=== PATIENT | female | born 1965 | race American Indian/Alaskan Native ===

== ENCOUNTER 2017-07-11 18:17 | Inpatient (IN) | payer OTHER ==
[2017-07-11] MEDS ORDERED: ASPIRIN PO ONE (18:36)
[2017-07-11 18:50] LABS: Basophils % (Auto) 0.7 % (0.0-1.8); Eosinophils # (Auto) 0.2 K/mm3 (0.0-0.4); Eosinophils % (Auto) 2.5 % (0.0-4.3); Hematocrit 41.7 % (30.3-42.9); Hemoglobin 14.2 gm/dl (10.1-14.3); Lymphocytes # (Auto) 3.1 K/mm3 (1.2-5.4); Lymphocytes % (Auto) 42.4 % (13.4-35.0); Mean Corpuscular HGB Conc 34 % (30-34); Mean Corpuscular Hemoglobin 30 pg (28-32); Mean Corpuscular Volume 89 fl (79-97); Monocytes # (Auto) 0.7 K/mm3 (0.0-0.8); Platelet Count 266 K/mm3 (140-440); Red Blood Count 4.68 M/mm3 (3.65-5.03); Red Cell Distribution Width 13.7 % (13.2-15.2)
[2017-07-11 19:05] LABS: BUN/Creatinine Ratio 26; Blood Urea Nitrogen 18 mg/dL (7-17); Calcium 9.2 mg/dL (8.4-10.2); Hemolysis Index 20
[2017-07-11] MEDS ORDERED: ZOFRAN IV ONE (20:49)
[2017-07-11] MEDS ORDERED: MORPHINE IV ONE ×2 (20:49→22:09)
--- NOTE | 2017-07-11 22:03 | Emergency Department Report ---
ED Chest Pain HPI - General Chief Complaint: Chest Pain Stated Complaint: CHEST PAIN Time Seen by Provider: 07/11/17 20:43 Source: patient Mode of arrival: Ambulatory Limitations: No Limitations - History of Present Illness Initial Comments: Patient is a 51-year-old [place] female presenting with chest pain. Patient states she has chest pressure is 8 out of 10 in severity with shortness of breath. Patient denies diaphoresis nausea vomiting. Patient states she was at rest when this started this persisted since. Patient states that occasionally she will get chest pain with exertion. But this is the worst episode she's ever had. Patient denies any cough congestion sore throat at this time. Severity scale (0 -10): 7 - Related Data Allergies Allergy/AdvReac Type Severity Reaction Status Date / Time No Known Allergies Allergy Unverified 07/11/17 18:28 Heart Score - HEART Score History: Moderately suspicious EKG: Non-specific Age: 45-65 Risk factors: 1-2 risk factors Troponin: < normal limit HEART Score: 4 ED Review of Systems ROS: Stated complaint: CHEST PAIN Other details as noted in HPI Comment: All other systems reviewed and negative ED Past Medical Hx - Past Medical History Previous Medical History?: Yes Hx Hypertension: Yes Additional medical history: High cholesterol - Surgical History Past Surgical History?: Yes Additional Surgical History: hysterectomy. hemorrhoidectomy - Social History Smoking Status: Never Smoker Substance Use Type: Alcohol ED Physical Exam - General Limitations: No Limitations General appearance: alert, other (patient appears uncomfortable holding her chest) - Head Head exam: Present: atraumatic, normocephalic - Eye Eye exam: Present: normal appearance - ENT ENT exam: Present: mucous membranes moist - Neck Neck exam: Present: normal inspection - Respiratory Respiratory exam: Present: normal lung sounds bilaterally. Absent: respiratory distress, wheezes, rales - Cardiovascular Cardiovascular Exam: Present: regular rate, normal rhythm. Absent: systolic murmur, diastolic murmur, rubs, gallop - GI/Abdominal GI/Abdominal exam: Present: soft, normal bowel sounds. Absent: distended, tenderness, guarding - Extremities Exam Extremities exam: Present: normal inspection - Back Exam Back exam: Present: normal inspection - Neurological Exam Neurological exam: Present: alert, oriented X3 - Psychiatric Psychiatric exam: Present: normal affect, normal mood - Skin Skin exam: Present: warm, dry, intact, normal color. Absent: rash ED Course Vital Signs 07/11/17 07/11/17 07/11/17 18:28 20:41 21:10 Temperature 97.5 F L 98.6 F Pulse Rate 103 H 96 H 106 H Respiratory 20 18 20 Rate Blood Pressure 189/82 Blood Pressure 143/78 [Right] O2 Sat by Pulse 98 100 99 Oximetry 07/11/17 07/11/17 21:16 21:30 Temperature Pulse Rate 96 H 99 H Respiratory 20 18 Rate Blood Pressure 145/71 145/71 Blood Pressure [Right] O2 Sat by Pulse 97 93 Oximetry JUDITH score - Judith Score Age > 65: (0) No Aspirin use within the Past 7 Days: (1) Yes 3 or more CAD Risk Factors: (0) No 2 or more Angina events in past 24 hrs: (1) Yes Known CAD with more than 50% Stenosis: (0) No Elevated Cardiac Markers: (0) No ST Deviation Greater than 0.5mm: (0) No JUDITH Score: 2 ED Medical Decision Making - Lab Data Result diagrams: 07/11/17 18:42 07/11/17 18:42 Lab Results 07/11/17 07/11/17 07/11/17 Range/Units 18:42 18:42 20:54 WBC 7.3 (4.5-11.0) K/mm3 RBC 4.68 (3.65-5.03) M/mm3 Hgb 14.2 (10.1-14.3) gm/dl Hct 41.7 (30.3-42.9) % MCV 89 (79-97) fl MCH 30 (28-32) pg MCHC 34 (30-34) % RDW 13.7 (13.2-15.2) % Plt Count 266 (140-440) K/mm3 Lymph % (Auto) 42.4 H (13.4-35.0) % [place] % (Auto) 9.0 H (0.0-7.3) % Eos % (Auto) 2.5 (0.0-4.3) % Baso % (Auto) 0.7 (0.0-1.8) % Lymph # 3.1 (1.2-5.4) K/mm3 [place] # 0.7 (0.0-0.8) K/mm3 Eos # 0.2 (0.0-0.4) K/mm3 Baso # 0.0 (0.0-0.1) K/mm3 Seg Neutrophils % 45.4 (40.0-70.0) % Seg Neutrophils # 3.3 (1.8-7.7) K/mm3 D-Dimer < 135.00 (0-234) ng/mlDDU Sodium 141 (137-145) mmol/L Potassium 3.6 (3.6-5.0) mmol/L Chloride 100.3 (98-107) mmol/L Carbon Dioxide 28 (22-30) mmol/L Anion Gap 16 mmol/L BUN 18 H (7-17) mg/dL Creatinine 0.7 (0.7-1.2) mg/dL Estimated GFR > 60 ml/min BUN/Creatinine Ratio 26 % Glucose 132 H (65-100) mg/dL Calcium 9.2 (8.4-10.2) mg/dL Troponin T < 0.010 (0.00-0.029) ng/mL 07/11/17 Range/Units 21:14 WBC (4.5-11.0) K/mm3 RBC (3.65-5.03) M/mm3 Hgb (10.1-14.3) gm/dl Hct (30.3-42.9) % MCV (79-97) fl MCH (28-32) pg MCHC (30-34) % RDW (13.2-15.2) % Plt Count (140-440) K/mm3 Lymph % (Auto) (13.4-35.0) % [place] % (Auto) (0.0-7.3) % Eos % (Auto) (0.0-4.3) % Baso % (Auto) (0.0-1.8) % Lymph # (1.2-5.4) K/mm3 [place] # (0.0-0.8) K/mm3 Eos # (0.0-0.4) K/mm3 Baso # (0.0-0.1) K/mm3 Seg Neutrophils % (40.0-70.0) % Seg Neutrophils # (1.8-7.7) K/mm3 D-Dimer (0-234) ng/mlDDU Sodium (137-145) mmol/L Potassium (3.6-5.0) mmol/L Chloride (98-107) mmol/L Carbon Dioxide (22-30) mmol/L Anion Gap mmol/L BUN (7-17) mg/dL Creatinine (0.7-1.2) mg/dL Estimated GFR ml/min BUN/Creatinine Ratio % Glucose (65-100) mg/dL Calcium (8.4-10.2) mg/dL Troponin T < 0.010 (0.00-0.029) ng/mL - EKG Data -: EKG Interpreted by Me - EKG Data Interpretation: other (EKG shows a sinus tachycardia 105 normal axis normal intervals and no ST segment elevations or depressions) - Radiology Data Radiology results: report reviewed Within normal limits no acute process - Medical Decision Making Patient is a 51-year-old black female who is presenting with chest discomfort. Patient's heart scores for in the intermediate range. I did speak with Dr. Pickett with [facility] who stated that since the patient is still having active chest discomfort that she is to stay here at our hospital at this time. The patient will be admitted to the hospitalist service Critical Care Time: Yes Critical care time in (mins) excluding proc time.: 30 Critical care attestation.: If time is entered above; I have spent that time in minutes in the direct care of this critically ill patient, excluding procedure time. ED Disposition Clinical Impression: Chest pain Qualifiers: Chest pain type: unspecified Qualified Code(s): R07.9 - Chest pain, unspecified Disposition: 09 OP ADMIT IP TO THIS HOSP Is pt being admited?: No Does the pt Need Aspirin: No Condition: Stable Instructions: Chest Pain (ED)
[2017-07-11] MEDS ORDERED: NITRO-BID 2% TP ONE (22:09)
--- NOTE | 2017-07-11 22:54 | XRay Report ---
FINAL REPORT PROCEDURE: XR CHEST 1V AP TECHNIQUE: Chest radiograph anteroposterior view. CPT 26258 HISTORY: cp COMPARISON: No prior studies are available for comparison. FINDINGS: Heart: Normal. Mediastinum/Vessels: Normal. Lungs/Pleural space: An inhomogeneous density is noted in the left retrocardiac region. Right lung and bilateral pleural spaces are clear.. Bony thorax: No acute osseous abnormality. Life support devices: None. IMPRESSION: An inhomogeneous density in the left retrocardiac region may represent atelectatic versus infiltrative changes. A two view chest study is recommended whenever the patient's condition permits..
[2017-07-11] MEDS ORDERED: SODIUM CHLORIDE FLUSH SYRINGE 10 ML IV PRN (22:57)
[2017-07-11] MEDS ORDERED: MORPHINE IV PRN (22:57)
[2017-07-11] MEDS ORDERED: ZOFRAN IV PRN (22:57)
[2017-07-11] MEDS ORDERED: TYLENOL PO PRN (22:57)
--- NOTE | 2017-07-11 23:03 | History and Physical Report ---
History of Present Illness Date of examination: 07/11/17 History of present illness: 51-year-old lady with a history of hypertension, hyperlipidemia comes emergency room with complaints of chest pain started today. Pain is in the epigastric area which she describes a tightness, intermittent in nature lasting for 20 seconds, intensity 4 with 10, no radiation. She can't identify exacerbating or relieving factors. Admits to palpitation, no nausea vomiting shortness of breath, diaphoresis Review of systems Constitutional: no weight loss, chills Ears, eyes, nose, mouth and throat: no nasal congestion, no nasal discharge, no sinus pressure, no vision change, no red eye. Neck: No neck pain or rigidity. Cardiovascular: + palpitations Respiratory: No cough, shortness of breath Gastrointestinal: no abdominal pain, hematochezia Genitourinary : no dysuria, frequency , no hematuria Musculoskeletal: no joint swelling or muscle ache Integumentary: no rash, no pruritis Neurological: no parathesias, no numbness, no focal weakness Endocrine: no cold or heat intolerance, no polyuria or polydipsia Hematologic/Lymphatic: no easy bruising, no easy bleeding, no gland swelling Allergic/Immunologic: no urticaria, no angioedema. PAST MEDICAL HISTORY: Hypertension, hyperlipidemia PAST SURGICAL HISTORY: Hysterectomy, hemorrhoidectomy SOCIAL HISTORY: Denies alcohol, tobacco, drugs FAMILY HISTORY: Hypertension Medications and Allergies Allergies Allergy/AdvReac Type Severity Reaction Status Date / Time No Known Allergies Allergy Unverified 07/11/17 18:28 Home Medications Medication Instructions Recorded Confirmed Last Taken Type Acetaminophen [Acetaminophen TAB] 325 mg PO Q4H PRN #30 tablet 07/12/17 Unknown Rx Lisinopril [Zestril] 10 mg PO DAILY #30 tablet 07/12/17 Unknown Rx Pantoprazole [Protonix] 40 mg PO QDAY #30 tablet 07/12/17 Unknown Rx Pravastatin [Pravachol] 20 mg PO QHS #30 tablet 07/12/17 Unknown Rx Exam - Physical Exam Narrative exam: Gen. appearance: Patient lying in bed, no apparent distress HEENT: Normocephalic, atraumatic, pupils equally round and reactive to light, extraocular movement intact, and no sclericterus,. No JVD or thyromegaly or nodule,neck supple, no carotid bruit ,mucous membranes moist, no exudate or erythema Heart: S1, S2, regular rate and rhythm Lungs: Clear to auscultation bilaterally, breathing comfortable Abdomen: Positive bowel sounds, nontender, nondistended, no organomegaly Extremity: No edema, cyanosis, clubbing Skin: No rash, nodules, warm, dry Neuro: Oriented 3, cranial nerves II-12 intact, speech is fluent, motor and sensory intact - Constitutional Vitals: Temp Pulse Resp BP Pulse Ox 98.6 F 86 18 116/86 94 07/11/17 20:41 07/11/17 22:35 07/11/17 22:35 07/11/17 22:35 07/11/17 22:00 Results - Labs CBC & Chem 7: 07/12/17 04:50 07/12/17 04:50 Labs: Abnormal lab results 07/11/17 07/11/17 Range/Units 18:42 18:42 Lymph % (Auto) 42.4 H (13.4-35.0) % [place] % (Auto) 9.0 H (0.0-7.3) % BUN 18 H (7-17) mg/dL Glucose 132 H (65-100) mg/dL - Imaging and Cardiology EKG: image reviewed Chest x-ray: image reviewed Assessment and Plan Assessment Hypertensive urgency Chest pain Hyperlipidemia Plan Admit to medicine Check cardic enzymes, stress test IV hydralazine, morphine, DVT prophylaxis
[2017-07-11 23:54] LABS: Creatine Kinase MB 1.5 ng/mL (0.0-4.0)
[2017-07-12] MEDS ORDERED: APRESOLINE IV PRN (00:43)
[2017-07-12 05:39] LABS: Basophils % (Auto) 0.4 % (0.0-1.8); Eosinophils % (Auto) 0.2 % (0.0-4.3); Hematocrit 38.2 % (30.3-42.9); Hemoglobin 12.9 gm/dl (10.1-14.3); Lymphocytes # (Auto) 1.4 K/mm3 (1.2-5.4); Lymphocytes % (Auto) 19.2 % (13.4-35.0); Mean Corpuscular HGB Conc 34 % (30-34); Mean Corpuscular Hemoglobin 30 pg (28-32); Mean Corpuscular Volume 89 fl (79-97); Monocytes # (Auto) 0.6 K/mm3 (0.0-0.8); Monocytes % (Auto) 7.9 % (0.0-7.3); Platelet Count 260 K/mm3 (140-440); Red Blood Count 4.28 M/mm3 (3.65-5.03); Red Cell Distribution Width 13.7 % (13.2-15.2)
[2017-07-12 05:59] LABS: BUN/Creatinine Ratio 23; Blood Urea Nitrogen 16 mg/dL (7-17); Calcium 8.8 mg/dL (8.4-10.2); Hemolysis Index 6
[2017-07-12 06:05] LABS: Creatine Kinase MB 1.2 ng/mL (0.0-4.0)
[2017-07-12] MEDS ORDERED: LEXISCAN IV ONE ×2 (08:37→08:39)
[2017-07-12] MEDS ORDERED: LOVENOX SUB-Q SCH (10:00)
[2017-07-12] MEDS ORDERED: SODIUM CHLORIDE FLUSH SYRINGE 10 ML IV SCH (10:00)
[2017-07-12] MEDS ORDERED: ZESTRIL PO SCH (10:00)
[2017-07-12 12:37] VITALS: BP 120/61
--- NOTE | 2017-07-12 14:00 | XRay Report ---
ROUTINE CHEST, TWO VIEWS: HISTORY: Pneumonia. The trachea, heart, mediastinal contour, lung lopez and bony thorax are unremarkable. IMPRESSION: Unremarkable chest x-ray.
--- NOTE | 2017-07-12 15:36 | Discharge Summary ---
Providers - Providers Date of Admission: 07/11/17 22:57 Date of discharge: 07/12/17 Attending physician: KRISTEN BLACKWOOD Hospitalization Condition: Stable Hospital course: Chest pains, atypical most likely GERD related, pt has history of gerd. negative stress test pCXR was abnormal, ?pna, admit to r/o aCS and possible pna, pna was eventually r /o with additional CXR Disposition: DC-01 TO HOME OR SELFCARE Time spent for discharge: 34 minutes Core Measure Documentation - Palliative Care Palliative Care/ Comfort Measures: Not Applicable - Core Measures Any of the following diagnoses?: none - VTE Discharge Requirements Deep Vein Thrombosis/Pulmonary Embolism Present on Admission: No Has pt received <5 days of overlap therapy or INR<2.0: No Anticoagulant overlap therapy prescribed at discharge: No Contraindication No Overlap Therapy order at DC: Not Indicated Exam - Constitutional Vitals: Temp Pulse Resp BP Pulse Ox 98.0 F 80 18 120/61 93 07/12/17 12:36 07/12/17 12:36 07/12/17 12:36 07/12/17 12:36 07/12/17 12:36 General appearance: Present: no acute distress - EENT Eyes: Present: PERRL, EOM intact ENT: hearing intact, clear oral mucosa - Neck Neck: Present: supple, normal ROM - Respiratory Respiratory: bilateral: CTA - Cardiovascular Rhythm: regular Heart Sounds: Present: S1 & S2 - Extremities Extremities: no ischemia, pulses intact - Abdominal General gastrointestinal: Present: soft, non-tender, non-distended, normal bowel sounds - Integumentary Integumentary: Present: clear, warm, dry - Musculoskeletal Musculoskeletal: strength equal bilaterally - Psychiatric Psychiatric: appropriate mood/affect - Neurologic Neurologic: CNII-XII intact, no focal deficits - Allied Health Allied health notes reviewed: nursing Plan Activity: other (no strenous activities until cleared by PCP) Diet: low salt Follow up with: DAMIÁN BLOCK MD [Other] - 7 Days Prescriptions: Pravastatin [Pravachol] 20 mg PO QHS #30 tablet Lisinopril [Zestril] 10 mg PO DAILY #30 tablet Pantoprazole [Protonix] 40 mg PO QDAY #30 tablet
--- NOTE | 2017-07-12 21:12 | Treadmill Report ---
ORDERING PHYSICIAN: Kristen Monsalve MD INDICATION: Chest pain. FINDINGS: There is no scintigraphic evidence of myocardial ischemia. The left ventricle is normal in size and systolic function. The left ventricular ejection fraction is measured at 66%. Normal wall motion and wall thickening is noted on gated imaging. CONCLUSION: Normal perfusion scan. JOB# [id number] TREVON/RADHA
[2017-07-12] MEDS ORDERED: PRAVACHOL PO SCH (22:00)
== END 2017-07-12 17:10 | disposition home or self-care (01) | DRG 392 ==
LOC: ED 18:17 → 4A 22:57
PROVIDERS: ADMIT Internal Medicine; ATTEND Internal Medicine
DX: K21.9 Gastro-esophageal reflux disease without esophagitis (principal); E78.5 Hyperlipidemia, unspecified; I16.0 Hypertensive urgency; I10 Essential (primary) hypertension; E78.00 Pure hypercholesterolemia, unspecified; Z90.710 Acquired absence of both cervix and uterus; Z82.49 Family history of ischemic heart disease and other diseases of the circulatory system
CPT/HCPCS: 36415; 71045; 71046; 78452; 80048; 82550; 82553; 84484; 85025; 85379; 93005; 93010; 93017; A9502; J1650; J2270; J2405; J2785